=== PATIENT | male | born 1975 | race Caucasian/White ===

== ENCOUNTER 2024-12-23 08:38 | Observation (INO) ==
[2024-12-23] MEDS: SODIUM CHLORIDE 0.9% 1,000 ML IV STA (09:23)
[2024-12-23] MEDS: ONDANSETRON INJ 2 MG/ML 2 ML VIAL IV STA (09:27)
[2024-12-23 09:38] LABS: Hematocrit (blood only) 43.3 % (42.0-52.0); Hemoglobin 15.7 g/dL (14.0-18.0); Mean Corpuscular Hemoglobin 30.4 pg (25.0-34.0); Mean Corpuscular Volume 83.8 fL (80.0-100.0); Platelet Count 317 K/uL (130-400); RDW Standard Deviation 36.3 fL (36.4-46.3); Red Blood Count 5.17 M/uL (4.70-6.10); White Blood Count 9.55 K/ul (4.8-10.8)
[2024-12-23 09:54] LABS: Alanine Aminotransferase 11.0 U/L (7-52); Albumin Globulin Ratio 1.5 (0.9-2); Albumin Level 4.8 gm/dl (3.4-5.0); Alkaline Phosphatase 51.0 U/L (34-104); Anion Gap 14.0 (3-11); Bilirubin,Total 1.2 mg/dl (0.2-1.0); Blood Urea Nitrogen 37.0 mg/dl (6-23); Calcium 9.4 mg/dl (8.6-10.3); Carbon Dioxide 32.0 mmol/L (21-32); Chloride 80.0 mmol/L (98-107); Creatinine Clr Calc Pharmacy 64.6 ml/min; Globulin 3.3 gm/dl (2.5-4.0); Glucose 114.0 mg/dl (70-99(Fasting)); Lipase 9.0 U/L (11-82); Potassium 3.1 mmol/L (3.5-5.1); Sodium 126.0 mmol/L (136-145); Total Protein 8.1 gm/dl (6.0-8.3)
[2024-12-23] MEDS: OPTIRAY 320 100ml IV ONE (10:17)
[2024-12-23 10:21] LABS: Immature Granulocytes # (auto) 0.05 K/uL (0.01-0.20); Immature Granulocytes % (auto) 0.5 %; Polychromasia 1+
--- NOTE | 2024-12-23 10:34 | CT Scan Report ---
CT SCAN OF THE ABDOMEN AND PELVIS WITH IV CONTRAST CLINICAL HISTORY: Possible incarcerated umbilical hernia. COMPARISON STUDY: None. TECHNIQUE: Following the IV administration of 94 cc of Optiray 320, CT scan of the abdomen and pelvis is performed from the lung bases to the proximal femora. Images are reviewed in the axial, sagittal, and coronal planes. IV contrast was administered without complication. A dose lowering technique was utilized adhering to the principles of ALARA. CT DOSE: 1332. mGy.cm FINDINGS: Visualized lung bases are unremarkable. No pneumatosis, free air or portal venous gas is pr esent. No suspicious hepatic lesions are present. Subcentimeter lateral segment hepatic hypodense les ion is likely benign. There are gallstones within the gallbladder. No evidence for acute cholecystiti s. Spleen, adrenal glands, kidneys and pancreas are unremarkable. There is no hydronephrosis. There i s no biliary or pancreatic ductal dilatation. The bladder is mildly distended. There is no hydronephr osis. Small diverticulum of the second portion of the duodenum is noted. Of note, the majority of the small bowel is moderately dilated and fluid-filled. This is due to an ileal loop within an umbilical hernia. The more distal small bowel is decompressed. The more proximal small bowel is dilated and fl uid-filled. There is mild associated mesenteric stranding and a small amount of ascites. Small bowel feces sign is present. The appendix is normal. IMPRESSION: 1. Findings consistent with a moderate to high-grade small bowel obstruction due to an umbilical gerson ia which contains a distal ileal loop. Mild associated mesenteric stranding and trace ascites. No pne umatosis, free air or portal venous gas. No significant bowel wall thickening. 2. Cholelithiasis. ACT 112: Negative or not required by law. Electronically signed by: Henry Ortez M.D. 12/23/2024 10:33 AM
--- NOTE | 2024-12-23 10:43 | Emergency Department Note ---
ED Provider Note History of Present Illness Chief Complaint: GI Assessment Stated Complaint: SUSPECTED INCARCERATED BOWEL Time Seen by Provider: 12/23/24 08:54 49-year-old male SCI [facility] inmate who presents to the emergency department with corrections officers with concern for possible incarcerated umbilical hernia. The patient reports a long history of his inguinal hernia. The patient reports that usually if he stopped eating, the hernia would spontaneously pop back in. Since he has been incarcerated, he reports that the frequency has increased. He noticed a hernia last , and it did not resolve. With progressively worsening pain, nausea and inability to tolerate any oral intake. The patient rates his discomfort a 9 out of 10. He denies any fever or chills. He also reports decreased urine output because of decreased fluid and food intake. The patient reports that he has only eaten banana over the past few days because of his discomfort. Home Medications Medication Instructions Recorded Confirmed Type No Known Home Medications 12/23/24 12/23/24 History Allergies Allergy/AdvReac Type Severity Reaction Status Date / Time No Known Allergies Allergy Unverified 12/23/24 09:02 Past Med/Surg History Problem List (Updated 12/23/24 @ 17:06 by Ra Velasquez) Small bowel obstruction (Acute) Incarcerated umbilical hernia (Acute) Medical History (Updated 12/23/24 @ 17:06 by Ra Velasquez) Chronic liver disease and cirrhosis Umbilical hernia Surgical History (Updated 12/24/24 @ 09:04 by Shefali Markham RN) H/O umbilical hernia repair (12/23/24) Open Umbilical Hernia Repair(Not Applicable) - Deshawn Arce DO Social History Smoking Status: Former smoker Hx Alcohol Use: No Hx Substance Use: No Preferred Language: Senegalese Communication Ability: Effective Maintenance Service Supervisor Required: No marital status: Single Current Living Situation Comment: inmate Assistive Devices: None Physical Exam Vital Signs Vital Signs - 24 hr 12/23/24 10:42 12/23/24 10:50 12/23/24 11:05 Temperature Temperature Source Pulse Rate 75 76 98 H Pulse Rate [Apical] Pulse Rate [Right Finger] Pulse Rate from SpO2 Sensor 75 76 Pulse Rhythm [Apical] Pulse Rhythm [Right Finger] Pulse Strength [Apical] Pulse Strength [Right Finger] Respiratory Rate 16 19 15 Respiratory Effort / Characteristics Respiratory Depth Respiratory Pattern Blood Pressure [Left Arm] Blood Pressure [Right Arm] Blood Pressure Mean [Left Arm] Blood Pressure Mean [Right Arm] Blood Pressure Position [Right Arm] Pulse Oximetry 91 92 Oxygen Delivery Method Oxygen Flow Rate 12/23/24 13:43 12/23/24 13:51 12/23/24 14:48 Temperature 36.8 C Temperature Source Oral Pulse Rate 80 Pulse Rate [Apical] 80 Pulse Rate [Right Finger] 88 Pulse Rate from SpO2 Sensor Pulse Rhythm [Apical] Regular Pulse Rhythm [Right Finger] Regular Pulse Strength [Apical] Normal Pulse Strength [Right Finger] Normal Respiratory Rate 17 22 Respiratory Effort / Characteristics Non-Labored Spontaneous Non-Labored Spontaneous Respiratory Depth Normal Normal Respiratory Pattern Regular Regular Blood Pressure [Left Arm] Blood Pressure [Right Arm] 137/81 132/82 Blood Pressure Mean [Left Arm] Blood Pressure Mean [Right Arm] 99 98 Blood Pressure Position [Right Arm] Lying Pulse Oximetry 99 93 Oxygen Delivery Method Room Air Room Air Oxygen Flow Rate 12/23/24 16:31 Temperature 37.3 C Temperature Source Temporal Artery Scan Pulse Rate Pulse Rate [Apical] 92 H Pulse Rate [Right Finger] Pulse Rate from SpO2 Sensor Pulse Rhythm [Apical] Regular Pulse Rhythm [Right Finger] Pulse Strength [Apical] Pulse Strength [Right Finger] Respiratory Rate 15 Respiratory Effort / Characteristics Non-Labored Spontaneous Respiratory Depth Normal Respiratory Pattern Regular Blood Pressure [Left Arm] 140/77 Blood Pressure [Right Arm] Blood Pressure Mean [Left Arm] 98 Blood Pressure Mean [Right Arm] Blood Pressure Position [Right Arm] Pulse Oximetry 98 Oxygen Delivery Method Oxymask Oxygen Flow Rate 7 CONSTITUTIONAL: Healthy and well nourished. Alert and oriented X 3. GCS 15. Patient appears in moderate discomfort. HEENT: No scleral icterus or conjunctival injection/pallor. Mucous membranes are dry. RESPIRATORY: Clear to auscultation bilaterally with no wheezing, crackles, rhonchi or stridor. CARDIOVASCULAR: Regular rate and rhythm with no murmurs, rubs or gallops. GASTROINTESTINAL: Bowel sounds present in all quadrants. Examination shows a walnut sized firm mass of the umbilicus. Surrounding tissue is soft and mildly tender to palpation. No obvious guarding or rebound. MUSCULOSKELETAL: Full range of motion of all joints without discomfort. No tenderness to palpation over the anterior chest wall. INTEGUMENTARY: No rash or other significant dermatologic conditions noted. HEMATOLOGIC: No ecchymosis or petechiae. PSYCHIATRIC: Positive affect. NEUROLOGIC: No focal neurologic deficits noted. Course Course Patient history and physical exam were performed. Nursing notes are reviewed. Vital signs are reviewed and were normal. IV access was established, labs were ordered and drawn. The patient was hydrated with a liter normal saline, and also administered IV Zofran. The patient refused any stronger analgesics. Review of labs shows a relatively normal CBC. CMP shows hyponatremia of 126, potassium of 3.1, creatinine of 1.52 and total bilirubin of 1.2. LFTs and lipase are normal. CT with IV contrast of the abdomen and pelvis does show a small bowel obstruction with a loop of ileus within the umbilical hernia. Findings were discussed with the patient. He continued to refuse any analgesics. At this point, I did reach out to general surgery, who indicated that they would evaluate the patient for further surgical management. I was notified by the surgery team that the were able to reduce the hernia, however elected continued surgical intervention. Please see their dictation for further treatment and final disposition. Administered Medications Lactated Ringer's (Lr) 1,000 mls @ 100 mls/hr IV .Q10H LARRY Stop: 12/26/24 17:53 Last Admin: 12/24/24 04:31 Dose: 100 mls/hr Documented By: Infusion: 12/24/24 04:11 Dose: Infused Documented By: Admin: 12/23/24 18:11 Dose: 100 mls/hr Documented By: RAQUEL Oxycodone HCl (Oxycodone Hcl Ir 5 Mg Tab (Immediate Release)) 5 mg PO Q4H PRN PRN Reason: MODERATE Pain (4,5,6) & Pre PT Stop: 01/06/25 17:53 Last Admin: 12/24/24 08:35 Dose: 5 mg Documented By: Admin: 12/24/24 02:05 Dose: 5 mg Documented By: CATY Discontinued Medications Bupivacaine HCl/Epinephrine Bitart (Bupivacaine/Epinephrine 0.5% Mpf 1:200,000 30 Ml Vial) Confirm Administered Dose 30 ml .ROUTE .STK-MED ONE Stop: 12/23/24 15:23 Last Admin: 12/23/24 15:57 Dose: 30 ml Documented By: DUYEN Sodium Chloride (Nss) 1,000 mls @ 999 mls/hr IV .Q1H1M STA Stop: 12/23/24 10:03 Last Infusion: 12/23/24 13:54 Dose: Infused Documented By: Admin: 12/23/24 09:23 Dose: 999 mls/hr Documented By: corinne Sodium Chloride (Nss) 1,000 mls @ 999 mls/hr IV .Q1H1M ONE Stop: 12/23/24 13:50 Last Infusion: 12/23/24 14:24 Dose: Infused Documented By: Admin: 12/23/24 13:54 Dose: 999 mls/hr Documented By: BRITTANY Cefazolin Sodium (Ancef 2000mg) 2,000 mg in 15 mls @ 3.75 mls/min IV PREOP ONE; Protocol Stop: 12/23/24 15:16 Last Admin: 12/23/24 15:35 Dose: 3.75 mls/min Documented By: [id number] Ioversol (Optiray 320 100ml) 94 ml IV ONCE ONE Stop: 12/23/24 10:17 Last Admin: 12/23/24 10:17 Dose: 94 ml Documented By: MARLEE Ondansetron HCl (Ondansetron Inj 2 Mg/Ml 2 Ml Vial) 4 mg IV NOW STA Stop: 12/23/24 09:04 Last Admin: 12/23/24 09:27 Dose: 4 mg Documented By: corinne Potassium Chloride (Potassium Chloride Crtab 20 Meq Tabcr) 40 meq PO NOW STA Stop: 12/24/24 08:09 Last Admin: 12/24/24 08:33 Dose: 40 meq Documented By: RAQUEL Medical Decision Making Medical Records Attestation: I reviewed the patient's medical records. Home Medications was personally reviewed by me Laboratory Data Attestation: I reviewed the patient's lab results. 12/24/24 06:59 12/24/24 06:59 Lab Results 12/23/24 12/23/24 12/23/24 Range/Units 09:24 09:31 10:07 WBC 9.55 (4.8-10.8) K/ul RBC 5.17 (4.70-6.10) M/uL Hgb 15.7 (14.0-18.0) g/dL Hct 43.3 (42.0-52.0) % MCV 83.8 (80.0-100.0) fL MCH 30.4 (25.0-34.0) pg MCHC 36.3 H (32.0-36.0) g/dL RDW Std Deviation 36.3 L (36.4-46.3) fL RDW Coeff of Dany 11.9 (11.5-14.5) % Plt Count 317 (130-400) K/uL MPV 9.8 (9.4-12.4) fL Immature Gran % (Auto) 0.5 % Neut % (Auto) 58.2 % Lymph % (Auto) 24.9 % Castro % (Auto) 15.5 % Eos % (Auto) 0.4 % Baso % (Auto) 0.5 % Neut # (Auto) 5.55 (1.40-6.50) K/uL Lymph # (Auto) 2.38 (1.20-3.40) K/uL Castro # (Auto) 1.48 H (0.11-0.59) K/uL Eos # (Auto) 0.04 (0.00-0.50) K/uL Baso # (Auto) 0.05 (0.00-0.20) K/uL Immature Gran # (Auto) 0.05 (0.01-0.20) K/uL Polychromasia 1+ Sodium 126 L (136-145) mmol/L Potassium 3.1 L (3.5-5.1) mmol/L Chloride 80 L (98-107) mmol/L Carbon Dioxide 32 (21-32) mmol/L Anion Gap 14 H (3-11) BUN 37 H (6-23) mg/dl Creatinine 1.52 H (0.6-1.4) mg/dl Est Cr Clr Drug Dosing 64.6 ml/min eGFR 56.17 BUN/Creatinine Ratio 24.3 H (10-20) Glucose 114 H (70-99(Fasting)) mg/dl Calcium 9.4 (8.6-10.3) mg/dl Total Bilirubin 1.2 H (0.2-1.0) mg/dl AST 16 (13-39) U/L ALT 11 (7-52) U/L Alkaline Phosphatase 51 (34-104) U/L Troponin I High Sens 7.6 (0-20) pg/ml Total Protein 8.1 (6.0-8.3) gm/dl Albumin 4.8 (3.4-5.0) gm/dl Globulin 3.3 (2.5-4.0) gm/dl Albumin/Globulin Ratio 1.5 (0.9-2) Lipase 9 L (11-82) U/L Urine Color Yellow Urine Appearance Clear (Clear) Urine pH 7.0 (4.5-7.5) Ur Specific [place] 1.017 (1.000-1.030) Urine Protein Negative (Negative) Urine Glucose (UA) Negative (Negative) Urine Ketones 1+ H (Negative) Urine Blood Negative (Negative) Urine Nitrite Negative (Negative) Urine Bilirubin Negative (Negative) Urine Urobilinogen Negative (Negative) Ur Leukocyte Esterase Negative (Negative) Urine Comment Imaging Data Attestation: I personally reviewed and interpreted this imaging study as follows: My Impression: My interpretation of his CT with IV contrast of the abdomen and pelvis is concerning for small bowel obstruction secondary to the patient's umbilical hernia. No obvious diverticulitis, appendicitis or abdominal free air noted. Radiologist report was otherwise reviewed with concurrence. Radiologist's Impression: Abdomen/Pelvis CT 12/23/24 09:03 CT SCAN OF THE ABDOMEN AND PELVIS WITH IV CONTRAST CLINICAL HISTORY: Possible incarcerated umbilical hernia. COMPARISON STUDY: None. TECHNIQUE: Following the IV administration of 94 cc of Optiray 320, CT scan of the abdomen and pelvis is performed from the lung bases to the proximal femora. Images are reviewed in the axial, sagittal, and coronal planes. IV contrast was administered without complication. A dose lowering technique was utilized adhering to the principles of ALARA. CT DOSE: 1332. mGy.cm FINDINGS: Visualized lung bases are unremarkable. No pneumatosis, free air or portal venous gas is present. No suspicious hepatic lesions are present. Subcentimeter lateral segment hepatic hypodense lesion is likely benign. There are gallstones within the gallbladder. No evidence for acute cholecystitis. Spleen, adrenal glands, kidneys and pancreas are unremarkable. There is no hydronephrosis. There is no biliary or pancreatic ductal dilatation. The bladder is mildly distended. There is no hydronephrosis. Small diverticulum of the second portion of the duodenum is noted. Of note, the majority of the small bowel is moderately dilated and fluid-filled. This is due to an ileal loop within an umbilical hernia. The more distal small bowel is decompressed. The more proximal small bowel is dilated and fluid-filled. There is mild associated mesenteric stranding and a small amount of ascites. Small bowel feces sign is present. The appendix is normal. IMPRESSION: 1. Findings consistent with a moderate to high-grade small bowel obstruction due to an umbilical hernia which contains a distal ileal loop. Mild associated mesenteric stranding and trace ascites. No pneumatosis, free air or portal venous gas. No significant bowel wall thickening. 2. Cholelithiasis. ACT 112: Negative or not required by law. Electronically signed by: Henry Ortez M.D. 12/23/2024 10:33 AM KUB X-Ray 12/23/24 11:12 KUB HISTORY: Status post placement of an enteric tube NG Tube Placement COMPARISON: CT abdomen and pelvis of same day FINDINGS: Status post placement of an enteric tube, distal tip projecting over the stomach. Contrast noted within the renal collecting systems and urinary bladder. Persistent small bowel obstruction with dilated loops measuring up to approximately 4 cm. No acute fracture identified. IMPRESSION: 1. Distal tip of enteric tube projects over the stomach. 2. Persistent small bowel obstruction. ACT 112: Negative or not required by law. The above report was generated using voice recognition software. It may contain grammatical, syntax or spelling errors. Electronically signed by: Desean Palacios M.D. 12/23/2024 11:50 AM ECG Data Attestation: I personally reviewed and interpreted this ECG as follows: Indication: + abdominal pain Rate (beats per minute): 80 Rhythm: + normal sinus ECG Intervals/blocks: + Normal QRS and + Prolonged QT ECG ST segments: + Normal ST segments Comparison ECG Date: no prior available MDM Narrative See ED Course section for further details of today's visit. Patient presents with concern for possible strangulated versus incarcerated umbilical hernia. The patient has had issues with his hernia for many years, and unfortunately has been dealing with his discomfort for the past 4 days. Examination shows a walnut sized umbilical hernia that could not be initially reduced. CT imaging shows evidence for a small bowel obstruction from a distal loop of ileum. CT imaging also does not show any other concerning intra-abdominal findings such as diverticulitis, pancreatitis or abdominal free air. Patient is afebrile does not have any leukocytosis to suggest infectious etiology at this time. The patient is notably hyponatremic and hypokalemic. These were not corrected prior to transfer to the operating room. Urinalysis did not show any hematuria or signs of infection, nor does the patient have any pain radiating into the testicles or rectum. The patient was evaluated by general surgery, who will be taking the patient to the OR for further surgical management. Impression Incarcerated umbilical hernia, Small bowel obstruction Discharge Plan Visit Data Chief Complaint: GI Assessment Stated Complaint: SUSPECTED INCARCERATED BOWEL ED Provider: Robin Hinojosa ED Midlevel Provider: Ra Velasquez Discharge Problem: Incarcerated umbilical hernia, Small bowel obstruction Patient Disposition: Admitted As Inpatient Condition: Fair Discharge Instructions Interventions: ED Discharge Assessment Last Done: 12/23/24 14:37 ED DC CONDITION Conditon at Discharge Condition at Discharge: Fair
[2024-12-23 10:51] LABS: Appearance Urine Clear (Clear); Glucose Urine UA Negative (Negative)
--- NOTE | 2024-12-23 11:20 | History & Physical Report ---
Date of Service December 23, 2024 Assessment & Plan (1) Umbilical hernia: Plan: This is a 49yM prisoner who states he has a history of liver disease related to history of alcohol use who presents to the [facility] ED on 12/23/24 with complaints of umbilical abdominal pain. Patient states the pain started last . He intermittently feels like his hernia becomes firm/hard but usually eventually reduces. This time it started to become stuck since and never went back in. This was associated with pain, nausea/vomiting, and lack of bowel function. Last BM was on monday. He reports not eating much due to nausea/vomiting and pain. He presented to the ER for further evaluation where he underwent a CT a/p that showed findings consistent with a moderate to high-grade small bowel obstruction due to an umbilical hernia which contains a distal ileal loop. Mild associated mesenteric stranding and trace ascites. The patient states the hernia was founded about 5 years ago around the time of his liver diagnosis when he underwent a paracentesis at [facility]. He has not required paracentesis recently. He denies past surgical history on the abdomen. Today in the ER blood work shows WBC 9.5, hbg 15, Na 126, K 3.1, Cr 1.5. Vital signs are stable. On exam patient's abdomen is bloated with + umbilical hernia noted, no overlying skin changes. tender to palpation. I laid patient flat and feel like I was able to reduce or at least partially reduce the hernia contents. He tolerated this well. Given that it was stuck with bowel causing SBO, to prevent this from occurring again we will plan on repairing the hernia in an open umbilical fashion today. Continue NPO with NGT. Continue IV abx as labs show dehydration likely from emesis losses. Patient in agreement with the plan. Dr Arce will be by to obtain consent. As above. Patient feeling okay since hernia reduced. Discussed options and risks. I recommend repair while he is here because of a high likelihood of recurrence within the next week. We discussed potential risks which include bleeding infection injury to another organ blood clots etc. I have answered all of his questions. We will proceed today with open repair of his umbilical hernia. I estimate this measures about 4 cm. History of Present Illness Primary Care Provider: SHARDA Rivera This is a 49yM prisoner who states he has a history of liver disease related to history of alcohol use who presents to the [facility] ED on 12/23/24 with complaints of umbilical abdominal pain. Patient states the pain started last . He intermittently feels like his hernia becomes firm/hard but usually eventually reduces. This time it started to become stuck since and never went back in. This was associated with pain, nausea/vomiting, and lack of bowel function. Last BM was on monday. He reports not eating much due to nausea/vomiting and pain. He presented to the ER for further evaluation where he underwent a CT a/p that showed findings consistent with a moderate to high-grade small bowel obstruction due to an umbilical hernia which contains a distal ileal loop. Mild associated mesenteric stranding and trace ascites. The patient states the hernia was founded about 5 years ago around the time of his liver diagnosis when he underwent a paracentesis at [facility]. He has not required paracentesis recently. He denies past surgical history on the abdomen. Denies cardiac issues, diabetes, or any other major medical issues and does not routinely take medication for anything. Allergies Allergy/AdvReac Type Severity Reaction Status Date / Time No Known Allergies Allergy Unverified 12/23/24 09:02 Past Med/Surg History Problem List Medical History Chronic liver disease and cirrhosis Umbilical hernia Social History Smoking Status: Former smoker Preferred Language: Syriac marital status: Single Current Living Situation Comment: Incarcerated Review of Systems Constitutional: no fever and no chills Respiratory: no dyspnea Cardiovascular: no chest pain Gastrointestinal: + abdominal pain, + bloating, + nausea, + vomiting and + constipation umbilical region stuck out and painful Physical Exam Physical Exam: awake/alert, appears in pain Constitutional: well developed and well nourished; no acute distress Respiratory: normal respiratory effort Gastrointestinal (Abdomen): Inspection/Auscultation: + abdomen distended and + visible herniation (+ umbilical hernia, no skin changes, tender/firm) Percussion/Palpation: + abdomen tender (ttp mostly heriberto umbilically/umbilically ) and abdomen soft + NGT in place Results & Data Results & Data Vital Signs (Past 12 Hours) Vital Signs Temp Pulse Pulse Resp BP BP Pulse Ox 12/23/24 11:05 98 H 15 12/23/24 10:50 76 19 92 12/23/24 10:42 75 16 91 12/23/24 10:35 80 18 133/71 95 12/23/24 10:30 75 20 91 12/23/24 10:27 76 23 92 12/23/24 10:00 75 25 H 92 12/23/24 09:51 72 28 H 93 12/23/24 09:42 71 12/23/24 09:41 72 21 93 12/23/24 09:03 80 18 96 12/23/24 08:46 97.5 F L 99 H 18 133/83 95 12/23/24 08:38 16 133/85 98 O2 Del Method 12/23/24 11:05 12/23/24 10:50 12/23/24 10:42 12/23/24 10:35 Room Air 12/23/24 10:30 12/23/24 10:27 12/23/24 10:00 12/23/24 09:51 12/23/24 09:42 12/23/24 09:41 12/23/24 09:03 Room Air 12/23/24 08:46 Room Air 12/23/24 08:38 Room Air Diagnostic Findings CT SCAN OF THE ABDOMEN AND PELVIS WITH IV CONTRAST CLINICAL HISTORY: Possible incarcerated umbilical hernia. COMPARISON STUDY: None. TECHNIQUE: Following the IV administration of 94 cc of Optiray 320, CT scan of the abdomen and pelvis is performed from the lung bases to the proximal femora. Images are reviewed in the axial, sagittal, and coronal planes. IV contrast was administered without complication. A dose lowering technique was utilized adhering to the principles of ALARA. CT DOSE: 1332. mGy.cm FINDINGS: Visualized lung bases are unremarkable. No pneumatosis, free air or portal venous gas is present. No suspicious hepatic lesions are present. Subcentimeter lateral segment hepatic hypodense lesion is likely benign. There are gallstones within the gallbladder. No evidence for acute cholecystitis. Spleen, adrenal glands, kidneys and pancreas are unremarkable. There is no hydronephrosis. There is no biliary or pancreatic ductal dilatation. The bladder is mildly distended. There is no hydronephrosis. Small diverticulum of the second portion of the duodenum is noted. Of note, the majority of the small bowel is moderately dilated and fluid-filled. This is due to an ileal loop within an umbilical hernia. The more distal small bowel is decompressed. The more proximal small bowel is dilated and fluid-filled. There is mild associated mesenteric stranding and a small amount of ascites. Small bowel feces sign is present. The appendix is normal. IMPRESSION: 1. Findings consistent with a moderate to high-grade small bowel obstruction due to an umbilical hernia which contains a distal ileal loop. Mild associated mesenteric stranding and trace ascites. No pneumatosis, free air or portal venous gas. No significant bowel wall thickening. 2. Cholelithiasis. ACT 112: Negative or not required by law. Electronically signed by: Henry Ortez M.D. 12/23/2024 10:33 AM PG Care Time/CCT Total # of Minutes Spent Total Time Spent with Patient: Total time spent is greater than 50% in coordination of care (as documented) at patient's floor/unit and/or counseling patient: Coding Level of Care Code 81035 INT INP/OBS CARE 2/55MIN Diagnoses Umbilical hernia K42.9
--- NOTE | 2024-12-23 11:51 | XRay Report ---
KUB HISTORY: Status post placement of an enteric tube NG Tube Placement COMPARISON: CT abdomen and pelvis of same day FINDINGS: Status post placement of an enteric tube, distal tip projecting over the stomach. Contrast noted within the renal collecting systems and urinary bladder. Persistent small bowel obstruction wit h dilated loops measuring up to approximately 4 cm. No acute fracture identified. IMPRESSION: 1. Distal tip of enteric tube projects over the stomach. 2. Persistent small bowel obstruction. ACT 112: Negative or not required by law. The above report was generated using voice recognition software. It may contain grammatical, syntax o r spelling errors. Electronically signed by: Desean Palacios M.D. 12/23/2024 11:50 AM
[2024-12-23] MEDS: SODIUM CHLORIDE 0.9% 1,000 ML IV ONE (13:54)
[2024-12-23] MEDS ORDERED: ONDANSETRON INJ 2 MG/ML 2 ML VIAL ONE (14:42)
[2024-12-23] MEDS ORDERED: PROPOFOL IV EMULSION 10 MG/ML 20 ML VIAL IV ONE (14:42)
[2024-12-23] MEDS ORDERED: LIDOCAINE 2% 2 ML VIAL/AMP(20MG/ML) INFIL ONE (14:42)
[2024-12-23] MEDS ORDERED: MIDAZOLAM HCL 1 MG/ML 2ML VIAL ONE (14:42)
[2024-12-23] MEDS ORDERED: ROCURONIUM BROMIDE 10 MG/ML 5 ML VIAL IV ONE (14:42)
--- NOTE | 2024-12-23 14:57 | Anesthesiology Consultation ---
Date of Service December 23, 2024 Assessment & Plan Chart Review Chart Review: Acceptable Risk for Surgery Consults Requested none ASA ASA2 Proposed Anesthesia Anesthesia Type: General Risk / Benefits Reviewed With: PT / POA / Parent / Guardian, Accepts Plan and Informed Consent Obtained History Surgery Operation Date: 12/23/24 16:20 Proposed Procedures p Open Umbilical Hernia Repair - Deshawn Arce, DO Height/Weight Height: 5 ft 8 in Weight: 89.6 kg Allergies Allergy/AdvReac Type Severity Reaction Status Date / Time No Known Allergies Allergy Unverified 12/23/24 09:02 Medications Home Medications Medication Instructions Recorded Confirmed Last Taken No Known Home Medications 12/23/24 12/23/24 Unknown NPO Date Last Intake of Fluids: 12/23/24 Time Last Intake of Fluids: 07:00 Date Last Intake of Solids: 12/21/24 Time Last Intake of Solids: 14:00 Past Medical History Medical History Chronic liver disease and cirrhosis Umbilical hernia Social History Smoking Status: Former smoker Physical Exam Vital Signs Last Vital Signs Temp 36.8 C 12/23/24 14:48 Pulse 88 12/23/24 14:48 Resp 22 12/23/24 14:48 BP 132/82 12/23/24 14:48 Pulse Ox 93 12/23/24 14:48 O2 Del Method Room Air 12/23/24 14:48 Constitutional no acute distress ENMT Thyromental Distance: > or= 3.5 Finger Breadths Mallampati Class: I ngt in left nares Neck normal visual inspection Respiratory normal respiratory effort Auscultation: lungs clear to auscultation bilaterally Cardiovascular Rate/Rhythm: regular rate and regular rhythm Musculoskeletal Spine: normal cervical ROM Neurologic moves all extremities Psychiatric Orientation: alert and oriented x 3 Testing Laboratory Results 12/23/24 09:24 12/23/24 09:24 Urine Color Yellow 12/23/24 10:07 Urine Appearance Clear (Clear) 12/23/24 10:07 Urine pH 7.0 (4.5-7.5) 12/23/24 10:07 Ur Specific Gonzales 1.017 (1.000-1.030) 12/23/24 10:07 Urine Protein Negative (Negative) 12/23/24 10:07 Urine Glucose (UA) Negative (Negative) 12/23/24 10:07 Urine Ketones 1+ (Negative) H 12/23/24 10:07 Urine Nitrite Negative (Negative) 12/23/24 10:07 Ur Leukocyte Esterase Negative (Negative) 12/23/24 10:07
[2024-12-23] MEDS ORDERED: ATROPINE SULFATE 0.1 MG/ML 10ML SYR IV PRN (14:58)
[2024-12-23] MEDS ORDERED: ONDANSETRON INJ 2 MG/ML 2 ML VIAL IV PRN ×3 (14:58→17:54)
[2024-12-23] MEDS ORDERED: SUCCINYLCHOLINE CHLORIDE 20 MG/ML 10 ML VIAL IV ONE (15:23)
[2024-12-23] MEDS: BUPIVACAINE/EPINEPHRINE 0.5% MPF 1:200,000 30 ML VIAL ONE (15:57)
[2024-12-23] MEDS ORDERED: SUGAMMADEX SODIUM 200 MG/2 ML VIAL IV ONE ×2 (15:59→16:18)
--- NOTE | 2024-12-23 16:12 | Operative Report ---
PG Post Operative Report Pre & Post Diagnosis Operation Date: 12/23/24 16:20 Pre-Op Diagnosis: Umbilical hernia Post-Op Diagnosis: Umbilical hernia approx 3.5 cm I identified the patient and participated in the time-out.: Yes Procedure Operation Date: 12/23/24 16:20 Actual Procedures p Open Umbilical Hernia Repair(Not Applicable) - Deshawn Arce DO Surgeon Deshawn Arce DO Service Captain lynn Negro Estimated Blood Loss 5 Findings Consistent with Post-Op Diagnosis Specimens none Description of Procedure After informed consent was obtained the patient was taken to the operating room and placed in supine position. After successful placement of the laryngeal mask airway the abdomen was sterilely prepped and draped in usual fashion. A curvilinear infraumbilical incision was made with a 15 blade scalpel and carried down through the soft tissue using cautery. This was carried down to the anterior fascia. A Tiffanie clamp was then used to come around the superior aspect of the umbilicus. The umbilical stalk was detached using cautery exposing a garden-variety umbilical hernia defect. It had a chronic hernia sac which I excised in its entirety. I was able to reduce the hernia contents back into the abdominal cavity. The hernia itself measured approximately 3.5 cm. I then primarily closed the fascial defect using 1 Ethibond in simple interrupted fashion. Because of the rather small size of the defect I opted to not use mesh. Once the defect was closed I thoroughly irrigated the wound. There was adequate hemostasis. Next I reattached the umbilical stalk using 0 Vicryl. Deep layers were closed using 3-0 Vicryl and skin was closed using 4-0 Monocryl. Marcaine with epinephrine was injected around the surgical site for postoperative analgesia. Dermabond glue was used to cover the incision. The patient was awakened, extubated and transferred to recovery in stable condition. My physician speech and language assistant was present for the entire case. She helped prep the patient, helped with retraction and exposure during my dissection as well as with wound closure and dressing placement I attest to the content of the Intraoperative Record and any orders documented therein. Any exceptions are noted below.
[2024-12-23] MEDS ORDERED: HYDROmorphone INJ 2 MG/ML SYR/VIAL ONE (16:24)
[2024-12-23] MEDS ORDERED: ACETAMINOPHEN 325 MG TAB PO PRN (17:54)
[2024-12-23] MEDS ORDERED: MoRPHine SULFATE 2 MG/ML CARP IV PRN (17:54)
--- NOTE | 2024-12-23 18:08 | Anesthesiology Progress Note ---
Date of Service December 23, 2024 Anesthesia Post Procedure Vital Signs Vital Signs: Temp Pulse Pulse Pulse Resp BP BP 12/23/24 17:45 37.1 C 82 16 122/74 12/23/24 17:25 79 14 154/85 H 12/23/24 17:10 36.9 C 81 14 146/82 H 12/23/24 17:00 84 14 151/88 H 12/23/24 16:50 86 15 151/79 H 12/23/24 16:40 36.6 C 86 14 148/77 H 12/23/24 16:31 37.3 C 92 H 15 140/77 12/23/24 14:48 36.8 C 88 22 12/23/24 13:51 80 17 12/23/24 13:43 80 12/23/24 11:05 98 H 15 12/23/24 10:50 76 19 12/23/24 10:42 75 16 12/23/24 10:35 80 18 12/23/24 10:30 75 20 12/23/24 10:27 76 23 12/23/24 10:00 75 25 H 12/23/24 09:51 72 28 H 12/23/24 09:42 71 12/23/24 09:41 72 21 12/23/24 09:03 80 18 12/23/24 08:46 36.4 C L 99 H 18 133/83 12/23/24 08:38 16 BP Pulse Ox O2 Del Method O2 Flow Rate 12/23/24 17:45 93 Nasal Cannula 2 12/23/24 17:25 96 Nasal Cannula 2 12/23/24 17:10 95 Nasal Cannula 2 12/23/24 17:00 96 Nasal Cannula 2 12/23/24 16:50 95 Nasal Cannula 2 12/23/24 16:40 97 Oxymask 4 12/23/24 16:31 98 Oxymask 7 12/23/24 14:48 132/82 93 Room Air 12/23/24 13:51 137/81 99 Room Air 12/23/24 13:43 12/23/24 11:05 12/23/24 10:50 92 12/23/24 10:42 91 12/23/24 10:35 133/71 95 Room Air 12/23/24 10:30 91 12/23/24 10:27 92 12/23/24 10:00 92 12/23/24 09:51 93 12/23/24 09:42 12/23/24 09:41 93 12/23/24 09:03 96 Room Air 12/23/24 08:46 95 Room Air 12/23/24 08:38 133/85 98 Room Air Pain Intensity Abdomen: Pain Intensity: 3 Transfer of Care Handoff Completed per policy Notes Mental Status: alert / awake / arousable and participated in evaluation Patient Amnestic to Procedure: Yes Nausea / Vomiting: adequately controlled Pain: adequately controlled Airway Patency, RR, SpO2: stable & adequate BP & HR: stable & adequate Hydration State: stable & adequate Anesthetic Complications: no major complications apparent and Pt Satisfied with anesthetic care
[2024-12-23] MEDS: LACTATED RINGER'S 1,000 ML IV SCH (18:11)
--- NOTE | 2024-12-24 05:51 | Electrocardiogram Report ---
Test Reason : Blood Pressure : */* mmHG Vent. Rate : 80 BPM Atrial Rate : 80 BPM P-R Int : 178 ms QRS Dur : 76 ms QT Int : 402 ms P-R-T Axes : -7 21 6 degrees QTcB Int : 463 ms Normal sinus rhythm Nonspecific ST and T wave abnormality Abnormal ECG No previous ECGs available Confirmed by Pérez Donis ([id number]) on 12/24/2024 5:50:52 AM Referred By: [facility] Confirmed By: Pérez Donis
[2024-12-24 07:46] LABS: Anion Gap 7.0 (3-11); Blood Urea Nitrogen 16.0 mg/dl (6-23); Calcium 8.5 mg/dl (8.6-10.3); Carbon Dioxide 31.0 mmol/L (21-32); Chloride 95.0 mmol/L (98-107); Creatinine Clr Calc Pharmacy 116.9 ml/min; Glucose 108.0 mg/dl (70-99(Fasting)); Potassium 3.1 mmol/L (3.5-5.1); Sodium 133.0 mmol/L (136-145)
[2024-12-24] MEDS: POTASSIUM CHLORIDE CRTAB 20 MEQ TABCR PO STA (08:33)
--- NOTE | 2024-12-24 08:34 | Surgery Progress Note ---
Date of Service December 24, 2024 Assessment & Plan (1) Incarcerated umbilical hernia: Plan: Pt here w/ incarcerated umbilical hernia causing SBO now POD#1 open umbilical hernia repair CBC pending, K 3.1 (will replete), Na 133, and Cr improved to 0.8. vitals stable Expected post op pain Tolerating clears, no n/v. having bowel function Will advance diet Will check on later today and may be ready for discharge back to jail f/u in office with dr. hammer in 1-2 weeks As above. Labs improving. Okay for discharge. Instructions discussed Admission and Anticipated Discharge Date Admission Date: December 23, 2024 Subjective Patient doing okay this AM. Reports some abdominal pain post op. No nausea/vomiting and tolerating clears. Reports + gas and loose BM Physical Exam Physical Exam: awake/alert, no distress Gastrointestinal (Abdomen): Inspection/Auscultation: + abdomen distended (mild) and + abdominal surgical incision (c/d/i with surgical dressing, some ecchymosis likely seen) Percussion/Palpation: + abdomen tender (expected post op discomfort heriberto incisionally) and abdomen soft Results & Data Vital Signs (Past 12 Hours) Vital Signs Temp Pulse Resp BP Pulse Ox O2 Del Method 12/24/24 07:11 98.4 F 68 16 114/70 93 Room Air 12/24/24 03:27 98.4 F 67 18 113/70 93 Room Air 12/23/24 23:46 98.4 F 64 18 115/73 94 Room Air 12/23/24 20:43 99.0 F 69 18 132/81 93 Room Air PG Care Time/CCT Total # of Minutes Spent Total Time Spent with Patient: Total time spent is greater than 50% in coordination of care (as documented) at patient's floor/unit and/or counseling patient: Coding Level of Care Code 51278 Post Operative Follow-Up Diagnoses Incarcerated umbilical hernia K42.0
[2024-12-24 08:39] LABS: Hematocrit (blood only) 36.1 % (42.0-52.0); Hemoglobin 12.8 g/dL (14.0-18.0); Immature Granulocytes # (auto) 0.03 K/uL (0.01-0.20); Immature Granulocytes % (auto) 0.3 %; Mean Corpuscular Hemoglobin 30.8 pg (25.0-34.0); Mean Corpuscular Volume 87.0 fL (80.0-100.0); Platelet Count 276 K/uL (130-400); RDW Standard Deviation 39.5 fL (36.4-46.3); Red Blood Count 4.15 M/uL (4.70-6.10); White Blood Count 9.79 K/ul (4.8-10.8)
== END 2024-12-24 13:05 ==
LOC: 3W 08:38 → ED 08:38 → 3W 14:37